=== PATIENT | male | born 1970 | race Caucasian/White ===

== ENCOUNTER 2018-04-14 21:06 | Inpatient (IN) | payer BC ==
[~2018-04-14] VITALS: Ht 167.6 cm; Wt 88.5 kg
[2018-04-14] MEDS ORDERED: KAPSPARGO SPRIN25 MG PO (21:17)
[2018-04-14] MEDS ORDERED: LIPITOR 10MG10 MG PO (21:17)
[2018-04-14] MEDS ORDERED: ASPIRIN 81M81 MG/TA2 PO (21:17)
[2018-04-14 21:22] LABS: HEMATOCRIT 42.6 % (42.0-52.0); MEAN CELL VOLUME 92 fl (80.0-100.0); MEAN CORPUSCULAR HEMOGLOBIN 32 pg (27.0-31.0); MEAN CORPUSCULAR HGB CONC 35 g/dl (33.0-37.0); MEAN PLATELET VOLUME 9.5 fl (7.4-10.4); PLATELET COUNT 248 K/mm3 (130-400); RED BLOOD COUNT 4.63 M/mm3 (4.20-5.60); REDCELL DISTRIBUTION WIDTH-CV 12.9 % (11.5-14.5)
[2018-04-14 21:29] LABS: ALANINE AMINOTRANSFERASE 53 U/L (21-72); ALBUMIN 4.3 gm/dL (3.5-5.0); ALKALINE PHOSPHATASE 59 U/L (50-136); ANION GAP 13 mmol/L (7-16); AST,SGOT 39 U/L (15-37); BILIRUBIN,TOTAL 0.4 mg/dL (0.0-1.0); BLOOD UREA NITROGEN 14 mg/dL (9-20); CALCIUM 9.2 mg/dL (8.4-10.2); CARBON DIOXIDE 22 mmol/L (22-30); CHLORIDE 105 mmol/L (98-107); CREATININE, serum 0.73 mg/dL (0.66-1.25); GLUCOSE 139 mg/dL (74-106); SODIUM 140 mmol/L (137-145); TOTAL PROTEIN 7.1 gm/dL (6.4-8.2)
[2018-04-14 21:31] LABS: POTASSIUM 2.8 mmol/L (3.4-5.0); PROTHROMBIN TIME 10.9 SECONDS (9.7-12.8)
[2018-04-14 21:34] LABS: PARTIAL THROMBOPLASTIN TIME 26.1 SECONDS (26.0-37.0)
[2018-04-14 21:41] LABS: BAND 2 % (0-10); EOSINOPHIL 1 % (0-4); LYMPHOCYTE 39 % (20.0-51.0); MYELOCYTE 1 % (0-0); NEUTROPHILS 44 % (42.0-75.2)
[2018-04-14 21:44] LABS: PLATELET ESTIMATE NORMAL (NORMAL)
[2018-04-14 21:59] LABS: TROPONIN-I < 0.012 ng/mL (0.000-0.034)
[2018-04-14 23:03] VITALS: BP 128/76; PULSE 117
--- NOTE | 2018-04-14 23:05 | NUR ---
ALL MEDICATIONS GIVEN VERBAL ORDER WITH READBACK BY MD. SEE MERGE FOR ALL SEX CRIMES DETECTIVE TIMES. MD AWARE OF FLUID AND SOLID INTAKE AT 1700.
[2018-04-15] VITALS (601 sets, daily range): BP systolic 96–124; BP diastolic 65–87; PULSE 71–119; TEMP 97.7–98.8; O2SAT 94–100
--- NOTE | 2018-04-15 00:55 | NUR ---
Patient arrived, accompanied by senior label specialist team. Patient has fem-stop in place. Verbal order by Dr. Garber to keep fem-stop on for 6 hours post heart catheterization. Will continue to monitor and assess.
[2018-04-15] MEDS ORDERED: LIPITOR20 MG PO (04:07)
[2018-04-15] MEDS ORDERED: LOPRESSOR 225 MG/TAB PO (04:07)
[2018-04-15] MEDS ORDERED: ASPIRIN 81M81 MG/TA2 PO (04:08)
[2018-04-15 05:59] LABS: BASO % 0.1 % (0.0-2.0); GRAN % 78.1 % (42.2-75.2); LYMPH # 1.2 (1.2-3.4); LYMPH % 11.8 % (20.0-51.0); MEAN CELL VOLUME 93 fl (80.0-100.0); MEAN CORPUSCULAR HGB CONC 34 g/dl (33.0-37.0); MEAN PLATELET VOLUME 9.7 fl (7.4-10.4); MONO % 9.8 % (1.7-9.3); PLATELET COUNT 191 K/mm3 (130-400); RED BLOOD COUNT 3.93 M/mm3 (4.20-5.60); REDCELL DISTRIBUTION WIDTH-CV 12.9 % (11.5-14.5)
[2018-04-15 06:02] LABS: HEMOGLOBIN 12.6 g/dl (13.5-18.0); MEAN CORPUSCULAR HEMOGLOBIN 32 pg (27.0-31.0)
[2018-04-15 06:03] LABS: HEMATOCRIT 36.7 % (42.0-52.0)
[2018-04-15 06:11] LABS: CALCIUM 7.7 mg/dL (8.4-10.2); CHOLESTEROL RISK RATIO 3.6; CREATININE, serum 0.55 mg/dL (0.66-1.25); MAGNESIUM 1.7 mg/dL (1.6-2.3); POTASSIUM 4.5 mmol/L (3.4-5.0)
[2018-04-15 06:50] LABS: TROPONIN-I 6 HR POST INITIAL 55.4 ng/mL (0.000-0.034)
--- NOTE | 2018-04-15 07:05 | NUR ---
Bedside report received from FLY Vaughan. Care of patient assumed at this time. Right groin site inspected, dressing is clean and dry, without signs of bleeding. Site is soft and non-tender, although there is some ecchymosis present. Pulses palpable 2+. No chest pain or shortness of breath reported at this time.
--- NOTE | 2018-04-15 07:40 | NUR ---
Patient resting in bed, denies chest pain or shortness of breath. All pulses palpable 2+. Right groin site remains soft and non-tender with no signs of bleeding. Will continue to monitor.
--- NOTE | 2018-04-15 08:00 | NUR ---
Patient assessment complete. Patient resting in bed, denies any pain or shortness of breath at this time. Patient's right groin puncture site is covered with gauze and tegaderm and features ecchymosis around the site, but the area is soft and non-tender, with no signs of bleeding on gauze. All pulses are palpable at 2+. Reviewed medications and dosages with patient. Will contiue to monitor.
[2018-04-15] MEDS ORDERED: VITAMINC1000TA PO (08:31)
[2018-04-15] MEDS ORDERED: MULTI VITAMINS1 TAB PO (08:42)
[2018-04-15] MEDS ORDERED: VITAMIN B COMPL1 T16 PO (08:42)
--- NOTE | 2018-04-15 12:00 | NUR ---
Patient is resting in bed. No acute changes. Right groin site continues to be soft and non-tender without signs of bleeding. Patient denies any chest pain or shortness of breath at this time. Patient ambulates without difficulty to bathroom with standby assit. Will continue to monitor.
--- NOTE | 2018-04-15 12:11 | NUR ---
Plan to return home with Starr . Patient reports that he uses [facility]. Patient denies having any DME or a DPOA due to his age. Patient reports that he does not have a PCP. Patient indicated that last he seen was in [place] Dr. Lev Welch. Patient report janki transport home. Patient declined homehealth care. ACtion:ESTER educated on resources. No additonal needs identified.
--- NOTE | 2018-04-15 12:24 | NUR ---
Higher Level Teaching Assistant offered prayer and support with patient and spouse.
--- NOTE | 2018-04-15 14:00 | NUR ---
Heparin charted for VTE prophylaxis compliance. Patient also received anti-coagulation therapy per laborer/key man documentation.
--- NOTE | 2018-04-15 16:25 | NUR ---
Patient resting in bed. Denies any chest pain or shortness of breath. Right groin site continues to be soft and non-tender, no signs of bleeding. Will continue to monitor.
--- NOTE | 2018-04-15 17:00 | NUR ---
Patient taken by wheelchair to medical floor room 316. Patient denies any pain or shortness of breath. Right groin site contiues to be soft and non-tender. Patient's accompanies patient and this nurse during transfer. Report called to FLY Sampson, prior to patient's arrival. Camilla meets this nurse at patient room on arrival. No concerns at this time.
--- NOTE | 2018-04-15 17:00 | NUR ---
Pt arrived to floor via w/c [facility] ICU staff and pt's . Pt able to ambulate to bathroom independently. Feeling well. R groin access site is CDI, no hematoma or tenderness reported at site but has extensive ecchymosis to scrotum and around access. Discussed elevating scrotum when laying down to help reduce swelling. Pt feeling well, wanted to shower but discussed keeping access site dry for 24 hours, pt agreeable to using wipes and shower cap. Resting in recliner at side of bed. Denies needs, oriented to room, call light in reach, will continue to monitor.
[2018-04-15] MEDS ORDERED: THE MEDICINE S200 M2 PO (18:31)
--- NOTE | 2018-04-15 18:35 | NUR ---
Pt resting in bed. Scrotom elevated on towel to help reduce swelling. Denies any other discomfort. at bedside. Will give bedside shift report to nightshift nurse who will resume care.
--- NOTE | 2018-04-15 20:30 | NUR ---
Initial shift assessment done- denies pain, Tele on, VSS. Right groin site soft/no hematoma- no drainage, brusing noted to groin/scrotum-edema to crotum- up on towel.
[2018-04-16 04:03] VITALS: BP 96/65; PULSE 73; TEMP 98
--- NOTE | 2018-04-16 05:54 | NUR ---
Quiet night-VSS, denies any chest pain, denies any pain or SOB, VSS, right groin site clean, dry and intact- soft- no hematoma. Continues with bruising/edema to srotum/groin.
--- NOTE | 2018-04-16 07:00 | NUR ---
Report received from FLY Young. Pt resting at side of bed, doing well, denies needs, will continue to monitor.
[2018-04-16 07:22] LABS: BASO % 0.2 % (0.0-2.0); EOS # 0.1 (0.0-0.7); EOS % 1.1 % (0-4.0); GRAN # 3.5 (1.4-6.5); GRAN % 63.7 % (42.2-75.2); HEMOGLOBIN 11.8 g/dl (13.5-18.0); LYMPH # 1.2 (1.2-3.4); LYMPH % 22.1 % (20.0-51.0); MEAN CELL VOLUME 95 fl (80.0-100.0); MEAN CORPUSCULAR HEMOGLOBIN 33 pg (27.0-31.0); MEAN CORPUSCULAR HGB CONC 35 g/dl (33.0-37.0); MEAN PLATELET VOLUME 9.5 fl (7.4-10.4); MONO # 0.7 (0.1-0.6); MONO % 12.7 % (1.7-9.3); PLATELET COUNT 160 K/mm3 (130-400); RED BLOOD COUNT 3.62 M/mm3 (4.20-5.60); REDCELL DISTRIBUTION WIDTH-CV 13.3 % (11.5-14.5)
[2018-04-16 07:26] LABS: HEMATOCRIT 34.2 % (42.0-52.0)
[2018-04-16 07:28] LABS: CALCIUM 8.5 mg/dL (8.4-10.2); CREATININE, serum 0.61 mg/dL (0.66-1.25); MAGNESIUM 2.2 mg/dL (1.6-2.3); POTASSIUM 3.7 mmol/L (3.4-5.0)
[2018-04-16 08:35] VITALS: BP 109/66; PULSE 69; TEMP 98.1
--- NOTE | 2018-04-16 09:31 | NUR ---
Assessmnet charted. Pt feeling well, denies any pain. R groin access site is CDI, extensive ecchymosis and swelling to groing and scrotum as per yesterday. INT to LA/C. Denies needs, will continue to monitor.
[2018-04-16 12:06] VITALS: BP 96/60; PULSE 71; TEMP 98
[2018-04-16] MEDS ORDERED: LIPITOR 40MG TA40 MG PO (12:20)
[2018-04-16] MEDS ORDERED: TOPROL XL 25MG25 MG PO (12:20)
[2018-04-16] MEDS ORDERED: NITROSTAT0.4 MG/TAB SL (12:20)
[2018-04-16] MEDS ORDERED: ASPI325T6 PO (12:21)
--- NOTE | 2018-04-16 13:11 | NUR ---
Discharge teaching completed at this time. Stent and angio seal cards provided with discharge packet. Reviewed new medications sent to pharmacy. Reviewed f/u appt with Jcarlos. INT d/c'd, tip intact. R groin site dressing removed by Jcarlos. Answered all qeustions. Pt escorted out by myself. Left with all belongings, to drive home, criteria met.
== END 2018-04-16 13:18 | disposition home or self-care (01) | DRG 247 ==
LOC: COL.ER 21:06 → ICU 21:44 → COL.ER 21:44 → MEDICAL 04-15 17:12
PROVIDERS: Family Medicine; ADMIT Internal Medicine Cardiovascular Disease
PROC: 027034Z Dilation of Coronary Artery, One Artery with Drug-eluting Intraluminal Device, Percutaneous Approach (ICD-10-PCS; principal; 2018-04-14)
PROC: B2111ZZ Fluoroscopy of Multiple Coronary Arteries using Low Osmolar Contrast (ICD-10-PCS; 2018-04-14)
PROC: B2151ZZ Fluoroscopy of Left Heart using Low Osmolar Contrast (ICD-10-PCS; 2018-04-14)
PROC: 4A023N7 Measurement of Cardiac Sampling and Pressure, Left Heart, Percutaneous Approach (ICD-10-PCS; 2018-04-14)
PROC: B41F1ZZ Fluoroscopy of Right Lower Extremity Arteries using Low Osmolar Contrast (ICD-10-PCS; 2018-04-14)
PROC: 3E03317 Introduction of Other Thrombolytic into Peripheral Vein, Percutaneous Approach (ICD-10-PCS; 2018-04-14)
DX: I21.19 ST elevation (STEMI) myocardial infarction involving other coronary artery of inferior wall (principal); I97.630 Postprocedural hematoma of a circulatory system organ or structure following a cardiac catheterization; I25.10 Atherosclerotic heart disease of native coronary artery without angina pectoris; I25.5 Ischemic cardiomyopathy; E87.6 Hypokalemia; I10 Essential (primary) hypertension; E78.5 Hyperlipidemia, unspecified; Z95.5 Presence of coronary angioplasty implant and graft
CPT/HCPCS: C1725; C1760; C1769; C1887; C1894; C9600; J0583; J1170; J1265; J1327; J1644; J1650; J2250; J2270; J2765; J3010; J3101; J3475; J3480; J7030; Q9967

== ENCOUNTER → 2018-06-28 | Outpatient (CLI) | payer BC ==
[~2018-06-28] MED LIST: ASPI325T6 PO; ASPIRIN 81M81 MG/TA2 PO; KAPSPARGO SPRIN25 MG PO; LIPITOR 10MG10 MG PO; LIPITOR 40MG TA40 MG PO; LIPITOR20 MG PO; LOPRESSOR 225 MG/TAB PO; MULTI VITAMINS1 TAB PO; NITROSTAT0.4 MG/TAB SL; THE MEDICINE S200 M2 PO; TOPROL XL 25MG25 MG PO; VITAMIN B COMPL1 T16 PO; VITAMINC1000TA PO
== END ==
LOC: COL.RAD 12:28
DX: N18.9 Chronic kidney disease, unspecified (principal)